=== PATIENT | male | born 1970 | race Caucasian/White ===

== ENCOUNTER 2018-04-24 10:52 | Emergency (ER) | payer MEDICAID ==
[~2018-04-24] VITALS: Ht 170.2 cm; Wt 108.1 kg
[2018-04-24 11:01] VITALS: Ht 170.2 cm; Wt 108.1 kg
[2018-04-24 11:41] LABS: microscopic required? NO
[2018-04-24 11:50] LABS: UA SPECIFIC GRAVITY 1.015 (1.005-1.035); urine erythrocyte NEGATIVE (NEGATIVE)
[2018-04-24 11:58] LABS: BASOPHIL % 0.4 % (0-2); PLATELET COUNT 392 x10^3mcL (130-400)
[2018-04-24 12:05] LABS: CALCIUM 8.6 mg/dL (8.5-10.1); CARBON DIOXIDE 25.4 mmol/L (21-32); CHLORIDE SERUM 105 mmol/L (98-107); CREATININE SERUM 0.7 mg/dL (0.7-1.3); GFR1 > 60 mL/min; GLUCOSE SERUM 87 mg/dL (74-106); POTASSIUM SERUM 3.8 mmol/L (3.5-5.1); SODIUM SERUM 138 mmol/L (136-145)
[2018-04-24 12:09] LABS: ALBUMIN 3.4 g/dL (3.4-5.0); ALKALINE PHOSPHATASE 56 U/L (46-116); ALT/SGPT 36 U/L (16-63); AST/SGOT 15 U/L (15-37); BILIRUBIN TOTAL 0.3 mg/dL (0.20-1.00); LIPASE 119 IU/L (73-393); TOTAL PROTEIN, SERUM 7.5 g/dL (6.4-8.2)
[2018-04-24 13:32] VITALS: BP 133/89
== END 2018-04-24 13:22 | disposition home or self-care (01) ==
LOC: ED 10:52
PROVIDERS: Emergency Medicine
DX: R10.31 Right lower quadrant pain (principal); D72.829 Elevated white blood cell count, unspecified
CPT/HCPCS: 36415

== ENCOUNTER 2018-04-25 08:21 | Emergency (ER) | payer MEDICAID ==
[~2018-04-25] VITALS: Ht 170.2 cm; Wt 109.3 kg
[2018-04-25 08:24] VITALS: BP 142/97; Ht 170.2 cm; Wt 109.3 kg
== END 2018-04-25 09:28 | disposition home or self-care (01) ==
LOC: ED 08:21
DX: R10.30 Lower abdominal pain, unspecified (principal)